=== PATIENT | female | born 1945 | race Caucasian/White ===

== ENCOUNTER → 2017-05-26 | Outpatient (REF) | payer MEDICARE | LOC: M LAB REF 12:49 | PROVIDERS: ATTEND Physician Assistant | DX: R30.0 Dysuria (principal) ==

== ENCOUNTER → 2019-09-11 | Outpatient (REF) | payer MEDICARE | LOC: M LAB REF 10:26 | PROVIDERS: ATTEND Dermatology | DX: C44.311 Basal cell carcinoma of skin of nose (principal) ==

== ENCOUNTER → 2019-10-19 | Outpatient (REF) | payer MEDICARE | LOC: M LAB 17:32 | PROVIDERS: ATTEND Physician Assistant | DX: R30.0 Dysuria (principal) ==

== ENCOUNTER → 2021-03-27 | Outpatient (REF) | payer MEDICARE | LOC: M LAB REF 19:11 | PROVIDERS: ATTEND Physician Assistant | DX: N39.0 Urinary tract infection, site not specified (principal) ==

== ENCOUNTER 2024-09-23 08:11 | Day surgery (SDC) | payer MEDICARE ==
[~2024-09-23] VITALS: Ht 170.2 cm; Wt 62.3 kg
[~2024-09-23 08:11] MED LIST: EZET10TA21 PO; HYDR-3490 PO; LEVO137T2 PO; LOSA100T46 PO; LR 1,000 ML IV SCH; METF500T13 PO; METO1TAB7 PO; PANT40TA29 PO; POTA-149 PO; THERTAB52 PO
[2024-09-23] MEDS ORDERED: fentaNYL 100 MCG/2 ML INJECTION As Ordered ONE (08:30)
[2024-09-23] MEDS ORDERED: INSULIN LISPRO (NovoLOG) PER UNIT SC PRN (09:05)
[2024-09-23] MEDS ORDERED: DEXTROSE 50% 50ML SYRINGE IV PRN (09:05)
[2024-09-23] MEDS ORDERED: GLUCAGON INJ 1MG VIAL SC PRN (09:05)
[2024-09-23] MEDS ORDERED: GLUCOSE 4 GM CHEW PO PRN (09:05)
[2024-09-23] MEDS: FLURBIPROFEN 0.03% OPHTH SOLN 2.5 ML OD SCH (09:09)
[2024-09-23] MEDS: PHENYLEPHRINE 2.5% OPHTH SOL 2ML OD SCH (09:09)
[2024-09-23] MEDS: TETRACAINE 0.5% OPHTH SOLN 4ML OD SCH (09:09)
[2024-09-23] MEDS: CYCLOPENTOLATE 1% OPHTH SOLN 2ML BTL OD SCH (09:09)
[2024-09-23] MEDS ORDERED: MIDAZOLAM INJ 2MG/2ML VIAL As Ordered ONE (10:25)
[2024-09-23] MEDS: LIDOCAINE 1% SDV 5ML VIAL As Ordered ONE (10:29)
[2024-09-23] MEDS: CEFUROXIME 1MG/0.1ML INTRACAMERAL INJ As Ordered ONE (10:30)
[2024-09-23 10:50] VITALS: BP 134/61; TEMP 97.6; O2SAT 96
== END 2024-09-23 11:05 | disposition home or self-care (01) ==
LOC: M SDC 08:11
PROVIDERS: ATTEND Ophthalmology
DX: E11.36 Type 2 diabetes mellitus with diabetic cataract (principal); H25.11 Age-related nuclear cataract, right eye; I10 Essential (primary) hypertension; E78.00 Pure hypercholesterolemia, unspecified; E03.9 Hypothyroidism, unspecified; Z79.890 Hormone replacement therapy; Z79.899 Other long term (current) drug therapy; Z88.8 Allergy status to other drugs, medicaments and biological substances; Z91.048 Other nonmedicinal substance allergy status; Z91.041 Radiographic dye allergy status; Z90.710 Acquired absence of both cervix and uterus
CPT/HCPCS: 66984; J0697; J2250; J3010; V2632